=== PATIENT | male | born 1980 | race Caucasian/White ===

== ENCOUNTER 2020-05-24 06:43 | Emergency (ER) | payer SELFPAY ==
[~2020-05-24] VITALS: Ht 188 cm; Wt 93.4 kg
[2020-05-24 07:00] VITALS: Ht 188 cm; Wt 93.4 kg
[2020-05-24 09:50] VITALS: BP 128/76
== END 2020-05-24 09:50 | disposition home or self-care (01) ==
LOC: ED 06:43
DX: R20.8 Other disturbances of skin sensation (principal); T45.0X1A Poisoning by antiallergic and antiemetic drugs, accidental (unintentional), initial encounter; Y92.89 Other specified places as the place of occurrence of the external cause; Z88.8 Allergy status to other drugs, medicaments and biological substances